=== PATIENT | female | born 1995 | race Hispanic/Latino ===

== ENCOUNTER 2022-10-06 14:39 | Emergency (ER) | payer SELFPAY ==
[2022-10-06] MEDS ORDERED: Lactated Ringer's 1,000 ML ONE (14:55)
[2022-10-06] MEDS ORDERED: Ondansetron PF 4 MG/2 ML Vial ONE (14:55)
[2022-10-06 15:10] LABS: #Basophils 0.1 thou/uL (0.0-0.2); #Lymphocytes 1.3 thou/uL (1.20-3.40); #Monocytes 0.4 thou/uL (0.11-0.59); #Neutrophils 11.7 thou/uL (1.40-6.50); %Basophils 0.9 % (0.0-1.0); %Eosinophils 0.1 % (0.0-10.0); %Lymphocytes 9.5 % (21.0-51.0); %Monocytes 2.9 % (0.0-10.0); %Neutrophils 86.7 % (42.0-75.0); Hemoglobin 13.3 g/dL (12.0-16.0); Mean Corpuscular HGB CONC 33.5 g/dL (32.0-36.0); Mean Corpuscular Hemoglobin 29.8 pg (27.0-31.0); Mean Corpuscular Volume 88.9 fl (78.0-98.0); Mean Platelet Volume 5.6 fL (7.4-10.4); Platelet Count 509 10x3/uL (130-400); RBC Distribution Width 13.5 % (11.5-14.5); Red Blood Cell (RBC) Count 4.46 mill/uL (4.20-5.40); White Blood Cell (WBC) Count 13.5 10x3/uL (4.8-10.8)
[2022-10-06 15:21] LABS: BHCG - Serum Negative (NEGATIVE); Pregs Control Background? CLEAR/WHITE (CLR/WHITE); Pregs Control Bar Appear? YES (CONTROL BAR)
[2022-10-06 15:25] LABS: Acetaminophen Less than 10.0 mcg/mL (10.0-30.0); Alcohol 275 mg/dL (Less than 10); Salicylate Less than 8.0 mg/dL (15.0-30.0)
[2022-10-06 15:28] LABS: ALT (SGPT) 13 U/L (8-55); AST (SGOT) 28 U/L (5-34); Alkaline Phosphatase 39 U/L (40-110); Anion Gap 21 mmol/L (10-20); BUN (Urea Nitrogen) 9 mg/dL (7.0-18.7); Bilirubin, Total 0.4 mg/dL (0.2-1.2); Calc. Creatinine Clearance 0 mL/min (70-130); Calcium 9.1 mg/dL (7.8-10.44); Carbon Dioxide 19 mmol/L (22-29); Chloride 107 mmol/L (98-107); Estimated GFR 96; Globulin 3.8 g/dL (2.4-3.5); Potassium 4.7 mmol/L (3.5-5.1); Protein, Total 8.8 g/dL (6.0-8.3); Sodium 142 mmol/L (136-145)
[2022-10-06 15:33] LABS: Bilirubin Negative (Negative); Blood, Urine Negative (Negative); Clarity Clear (Clear); Glucose, Urine (Dipstick) Negative (Negative); Ketone, Urine Trace mg/dL (Negative); Leukocyte Negative (Negative); Nitrite Negative (Negative); Protein, Urine (Dipstick) Negative (Neg-Trace); Urobilinogen 0.2 mg/dL (Less than 2)
[2022-10-06 15:34] LABS: Specific Gravity, Urine 1.005 (1.002-1.036)
[2022-10-06 15:39] LABS: Glucose 53 mg/dL (70-105)
[2022-10-06 15:39] LABS: Amphetamine Not Detected (NotDetected); Barbiturates Screen Not Detected (NotDetected); Benzodiazepine Screen Not Detected (NotDetected); Cocaine Metabolite Screen Not Detected (NotDetected); Medtox Control Line Valid? VALID (VALID); Methadone Not Detected (NotDetected); Methamphetamine Not Detected (NotDetected); Opiate Screen Not Detected (NotDetected); Oxycodone Screen Not Detected (NotDetected); Phencyclidine (PCP) Not Detected (NotDetected); THC/Cannabinoid Screen Not Detected (NotDetected); Tricyclic Screen Not Detected (NotDetected)
[2022-10-06] MEDS ORDERED: Ketorolac Tromethamine 30 MG/ML VIAL ONE (16:45)
== END 2022-10-06 16:57 | disposition home or self-care (01) ==
LOC: MADERS 14:39
DX: S09.90XA Unspecified injury of head, initial encounter (principal); F10.129 Alcohol abuse with intoxication, unspecified; E16.2 Hypoglycemia, unspecified; D72.829 Elevated white blood cell count, unspecified; Y90.8 Blood alcohol level of 240 mg/100 ml or more; Y04.8XXA Assault by other bodily force, initial encounter
CPT/HCPCS: 36416; 70450; 80053; 80306; 80307; 81003; 84703; 85025; 96361; 96374; 96375; J1885; J2405; J7120